=== PATIENT | female | born 1985 | race African-American/Black ===

== ENCOUNTER 2017-05-19 16:36 | Inpatient (IN) | payer MEDICAID ==
[~2017-05-19] VITALS: Ht 162.6 cm; Wt 95.7 kg
[2017-05-19] MEDS ORDERED: OXYTOCIN 10 UNITS/ML 1ML ONE (17:06)
[2017-05-19] MEDS ORDERED: DEXT 5%/LR + PITOCIN 20UNITS/L 1,000 ML IV SCH ×2 (18:18→21:35)
[2017-05-19] MEDS ORDERED: IBUPROFEN 600MG TABLET PO NR (18:30)
[2017-05-19 20:27] LABS: CLARITY URINE TURBID (CLEAR); COLOR URINE RED (YELLOW); KETONES URINE TRACE (NEGATIVE); LEUKOCYTE ESTERASE URINE 2+ (NEGATIVE); NITRITE URINE POSITIVE (NEGATIVE); OCCULT BLOOD URINE 3+ (NEGATIVE); PROTEIN URINE 1+ (NEGATIVE); SPECIFIC GRAVITY URINE 1.021 (1.005-1.030); UROBILINOGEN URINE 0.2 E.U./dL (0.2-1.0)
[2017-05-19 20:31] LABS: BASOPHILS % 0.3 % (0.0-2.0); EOSINOPHILS % 0.1 % (0.0-5.0); HEMATOCRIT. 39.3 % (36.0-48.0); HEMOGLOBIN. 12.7 g/dL (12.0-16.0); LYMPHOCYTES % 10.9 % (20.0-50.0); MEAN CORPUSCULAR HEMOGLOBIN 27.6 pg (28.0-32.0); MEAN CORPUSCULAR VOLUME 85.4 fL (81.0-99.0); MEAN PLATELET VOLUME 9.2 fl (7.4-10.4); MONOCYTES % 5.1 % (2.0-8.0); NEUTROPHILS % 83.6 % (40.0-76.0); PLATELET 313 x1000/uL (130-400); RED CELL DISTRIBUTION WIDTH 17.9 % (11.6-14.6)
[2017-05-19 20:35] LABS: PARTIAL THROMBOPLASTIN TIME 26.4 sec (23.4-31.0); PROTHROMBIN TIME 10.2 sec (9.4-11.6)
[2017-05-19 20:41] LABS: *AMPHETAMINES SCREEN URINE NEGATIVE (NEGATIVE); *BARBITURATES SCREEN URINE NEGATIVE (NEGATIVE); *BENZODIAZEPINES SCREEN URINE NEGATIVE (NEGATIVE); *COCAINE SCREEN URINE NEGATIVE (NEGATIVE); CANNABINOID URINE SCREEN NEGATIVE (NEGATIVE); METHADONE URINE SCREEN NEGATIVE (NEGATIVE); OPIATES URINE SCREEN NEGATIVE (NEGATIVE); PHENCYCLIDINE URINE SCREEN NEGATIVE (NEGATIVE)
[2017-05-19 21:05] LABS: HEPATITIS B SURFACE ANTIGEN NEGATIVE; RUBELLA IGG 73.5 IU/mL (4.99-10)
[2017-05-19] MEDS ORDERED: ACETAMINOPHEN WITH CODEINE 300/30MG TABLET PO PRN ×2 (21:45)
[2017-05-19] MEDS ORDERED: IBUPROFEN 400MG TABLET PO PRN (21:45)
[2017-05-19] MEDS ORDERED: GLYCERIN/WITCH HAZEL LEAF MEDICATED PAD TOP PRN (21:45)
[2017-05-19 23:15] VITALS: BP 135/85
[2017-05-20 00:35] VITALS: BP 112/70
[2017-05-20] MEDS: IBUPROFEN 800MG TABLET PO PRN ×2 (00:57→18:53)
[2017-05-20 08:00] VITALS: BP 114/80
[2017-05-20] MEDS: PRENATAL VIT/FE FUMARATE/FA TABLET PO SCH (09:34)
[2017-05-20] MEDS: FERROUS SULFATE 325MG TABLET PO SCH ×2 (14:04→17:43)
[2017-05-20 17:00] VITALS: BP 103/71
[2017-05-20] MEDS: CEPHALEXIN 500MG CAPSULE PO SCH (18:46)
[2017-05-20] MEDS ORDERED: DOCUSATE SODIUM 100MG CAPSULE PO SCH (21:00)
[2017-05-20 23:30] VITALS: BP 98/56
[2017-05-21] MEDS: CEPHALEXIN 500MG CAPSULE PO SCH ×3 (01:00→12:55)
[2017-05-21] MEDS: FERROUS SULFATE 325MG TABLET PO SCH (08:31)
[2017-05-21] MEDS: PRENATAL VIT/FE FUMARATE/FA TABLET PO SCH (08:31)
[2017-05-21 08:36] VITALS: BP 126/79
== END 2017-05-21 14:30 | disposition home or self-care (01) | DRG 560 ==
LOC: L&D 16:36 → OBSVTOIN 16:36 → 7EST PP/OB 22:41
PROVIDERS: ADMIT Obstetrics & Gynecology; ATTEND Obstetrics & Gynecology
PROC: 10E0XZZ Delivery of Products of Conception, External Approach (ICD-10-PCS; principal; 2017-05-19 23:00)
DX: O80 Encounter for full-term uncomplicated delivery (principal); Z37.0 Single live birth; Z3A.40 40 weeks gestation of pregnancy
CPT/HCPCS: 36415; 80305; 81001; 85025; 85610; 85730; 86592; 86703; 86762; 86850; 86900; 87340; 99281; G0378; J2590; J7120